=== PATIENT | female | born 1970 | race Caucasian/White ===

== ENCOUNTER 2018-04-09 00:13 | Emergency (ER) | payer BC ==
--- NOTE | 2018-04-09 00:26 | EDPHY ---
General Time Seen by Provider: 04/09/18 00:26 Narrative: CLINICAL IMPRESSION: Fever, Sore throat ASSESSMENT/PLAN: Patient is a 48-year-old female with no significant medical history who presents to the emergency department with complaints of a sore throat, runny nose, congestion and fever. Patient is afebrile, she is tired appearing however not toxic-appearing. She was noted to be mildly tachycardic on arrival with a heart rate of 105. On physical exam there is bilateral tonsillar enlargement, erythema and exudate. There was no stridor, drooling, hypoxia, respiratory distress or trismus. Her phonation was normal without hot potato voice. Rapid strep negative, culture is still pending. Influenza negative. Although the rapid strep was negative, her physical examination is most consistent with acute pharyngitis and secondary to reported fever of 102 opted to treat with Bicillin. Patient was also given Decadron, Zofran and a L of normal saline. She will continue taking ibuprofen and/or Tylenol as needed for pain. There was no evidence of otitis media, otitis externa, airway obstruction, uvular deviation, retropharyngeal abscess, peritonsillar abscess, deep space infection , angioedema, Sheldon angina, epiglottitis, sinusitis, meningitis or pneumonia. The patient [place], they are returning home on Wednesday and she will call to schedule follow-up appointment with her primary care provider on their return. On repeat examination and prior to discharge the patient is well-appearing, she states she feels so much better and her heart rate normalized to 80. I do not suspect sepsis or serious bacterial illness. Strict return precautions discussed- she is to return should she develop worsening sore throat, drooling, change in voice, inability to pass secretions or any other concerning symptom. Patient verbalizes understanding and is in agreement with this plan. DIFFERENTIAL DX: Adult fever including but not limited to viral syndromes including influenza, urinary tract infection, pneumonia and sepsis. ED COURSE: 0050: Case discussed with Dr. Hodge CHIEF COMPLAINT: Fever, sore throat, earache HPI: Patient is a 48-year-old female visiting on vacation with no significant medical history who presents to the emergency department with complaints of fever, sore throat and left earache. Patient reports she experienced what she feels was laryngitis about a week and half ago where she lost her voice and had no other symptoms. She did have several days thereafter was some runny nose and congestion, has never had any cough. 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 They traveled to [place] on Wednesday where she started to develop severe sore throat and left earache, she also felt at that time that she had a fever. She has been experiencing low- grade nausea and decreased appetite however has not had any vomiting. She denies any chest pain, shortness of breath or abdominal pain. She has had no rash. She denies any urinary symptoms to include dysuria, hematuria or increased frequency in her bowel movements have been normal. PMH: Denies Family History: Noncontributory Social History: Denies smoking or illicit drug use REVIEW OF SYSTEMS: All other systems negative Constitutional: Fever, decreased appetite. Eyes: No discharge, vision change ENT: Sore throat, left ear pain, runny nose, congestion. Cardiovascular: No chest pain, no palpitations. Respiratory: No cough, no shortness of breath. Gastrointestinal: Nausea No abdominal pain, no vomiting, diarrhea. Genitourinary: No hematuria, dysuria, flank pain, pelvic pain. Musculoskeletal: No back pain, joint swelling, joint pain, myalgias. Skin: No rashes, color change. Neurological: No headache, dizziness, weakness. PHYSICAL EXAM: General Appearance: Patient is well-developed, she is tired appearing however not toxic-appearing. HENT: Normocephalic, atraumatic. Bilateral external ears are normal. Bilateral tympanic membranes are normal with pearly polk reflex. There is no mastoid tenderness. Nares are clear, mucosa is pink. There is bilateral tonsillar enlargement, erythema and exudate. Uvula is midline. Her phonation is normal and there is no stridor. No other oral lesions identified. The dentition is normal. Eyes: PERRLA, no acute vision change, nystagmus, swelling, discharge, pain or photosensitivity. Conjunctiva pink, no pallor or injection. Neck: Patient with mild, tender anterior cervical lymphadenopathy. Supple, no midline pain, FROM, no meningismus. Respiratory: There are no retractions, lungs are clear to auscultation. Cardiac: Mildly tachycardic on arrival, no murmurs or gallops. Gastrointestinal: Abdomen is soft, nontender, bowel sounds normal, no masses/ hernia, no rigidity, guarding or focal peritoneal findings. Neurological: Alert and oriented x 3, CN 2-12 grossly intact, normal gait no ataxia, DTR's intact, normal sensation and strength Skin: Warm, dry, no rashes, no nodules on palpation. Musculoskeletal: Extremities are symmetrical, full range of motion, no tenderness, deformity, swelling, or erythema. Psychiatric: Patient is oriented X 3, there is no agitation. MEDICAL DECISION MAKING: Patient was seen independently. Secondary supervising physician at time of evaluation was Dr. Hodge, he also evaluated this patient. Diagnosis: Pharyngitis. New, requires workup Summary: See Assessment and Plan for summary of ED visit Clinical lab tests: ordered / reviewed. Independent visualization of images, tracing, or specimens: Not applicable. Decision to obtain medical records or history from someone other than the patient: Yes, Review / Summarize previous medical records: None available Discussed patient with another provider: Yes, Dr. Hodge Patient Progress: Stable, discharged. - History Smoking Status: Never smoked - Objective Vital Signs: Initial Vital Signs Temperature (C) 37.5 C 04/09/18 00:17 Heart Rate 105 H 04/09/18 00:17 Respiratory Rate 18 04/09/18 00:17 Blood Pressure 126/69 H 04/09/18 00:17 O2 Sat (%) 95 04/09/18 00:17 O2 Delivery Mode Room Air Allergies/Adverse Reactions: No Known Allergies Allergy (Unverified 04/09/18 00:16) Home Medications: Medication Instructions Recorded CLONAZEPAM 04/09/18 Lomotil Tab (*) 04/09/18 Seroquel 04/09/18 Laboratory Results: 04/09/18 Unknown Group A Strep DNA NEGATIVE (NEGATIVE) Medications Given: Discontinued Medications Dexamethasone (Decadron Injection) 10 mg IVP EDNOW ONE Stop: 04/09/18 00:50 Last Admin: 04/09/18 01:09 Dose: 10 mg Hydromorphone HCl (Dilaudid) 0.5 mg IVP EDNOW ONE Stop: 04/09/18 00:50 Last Admin: 04/09/18 01:09 Dose: 0.5 mg Sodium Chloride (Ns) 1,000 mls @ 0 mls/hr IV ONCE ONE PRN Reason: Wide Open Stop: 04/09/18 00:50 Last Admin: 04/09/18 00:56 Dose: 1,000 mls Ondansetron HCl (Zofran) 4 mg IVP Q4 PRN PRN Reason: Nausea/Vomiting, Can't Take PO Stop: 10/06/18 00:48 Last Admin: 04/09/18 01:09 Dose: 4 mg Penicillin G Benzathine (Bicillin L-A) 1,200,000 unit IM EDNOW ONE PRN Reason: Protocol Stop: 04/09/18 02:15 Last Admin: 04/09/18 02:35 Dose: 1,200,000 unit Departure - Departure Disposition: Home, Routine, Self-Care Clinical Impression: Pharyngitis Qualifiers: Pharyngitis/tonsillitis etiology: unspecified etiology Qualified Code(s): J02.9 - Acute pharyngitis, unspecified Condition: Good Instructions: Pharyngitis (ED) Additional Instructions: DISCHARGE INSTRUCTIONS FROM YOUR DOCTOR Thank you for visiting our emergency department today. Please keep in mind that discharge from the emergency department does not mean that there is nothing wrong - it simply means that we have not identified an emergency condition that requires further evaluation or treatment in the hospital. You should always plan to follow up with primary care for re-evaluation of your condition in the next 2-3 days. Rest, push non-diuretic, non-caffeinated fluids, consume a healthy diet, all to help support your immune system fight infection. Consider running a coolmist humidifier in the bedroom. Consider warm salt water gargles for sore throat. For pain control: You may take Tylenol, I recommend 500-1000 mg every 6-8 hours as needed. Take with food and a full glass of water. Stop taking if this is upsetting her stomach. Do not exceed 4000 mg in a 24 hr period. You may also take ibuprofen, recommend 400 mg every 6 hr. Take with food and a full glass of water. Stop taking if this upsets her stomach. Do not exceed 2400 mg in a 24 hr period. As discussed, in the setting of a viral illness, you may develop a secondary bacterial infection, requiring an antibiotic. Watch for new or changing symptoms ie: new ear pain or drainage, increasing cough, shortness of breath, high fever, or any other concerning symptoms. Your given a single dose of intramuscular Bicillin for presumed strep pharyngitis. You do not need additional antibiotics. Schedule a follow-up appointment with your primary care physician in the next 2- 3 days for re-evaluation, sooner for any new concerns. Return for high fever, shaking chills, severe headache, facial redness or swelling, drainage from your ears, difficulty breathing or swallowing, throat tightness, drooling, change in voice, inability to open your mouth normally, severe neck pain, neck stiffness, shortness of breath, wheezing, noisy breathing , coughing up blood, chest pain, vomiting, diarrhea, bloody stools, decreased urine output or other concerns for dehydration, bloody urine, rash, dizziness, weakness, fainting, or for any other new, worsening or worrisome symptoms. People present with illnesses and injuries in different ways, and it is always possible that we have missed something. You may always return for re-evaluation if symptoms worsen or if they are not improving or if you develop new/different symptoms. Again, thank you for choosing our emergency department. We hope that you feel better. Referrals: NONE *PRIMARY CARE P,. [Primary Care Provider] - As per Instructions (Follow up with your primary care provider when you return back home)
[2018-04-09] MEDS ORDERED: DEXAMETHASONE 10 MG/ML VIAL IVP ONE (00:49)
[2018-04-09] MEDS ORDERED: NS 1,000 ML IV ONE (00:49)
[2018-04-09] MEDS ORDERED: HYDROmorphONE/DILAUDID 2 MG/ML INJ IVP ONE (00:49)
[2018-04-09] MEDS ORDERED: ONDANSETRON 4 MG/2 ML VIAL IVP PRN (00:49)
[2018-04-09] MEDS ORDERED: BICILLIN L-A 1200000 UNIT/2 ML SYRINGE IM ONE (02:14)
[2018-04-09 06:26] VITALS: BP 134/76
== END 2018-04-09 02:41 | disposition home or self-care (01) ==
DX: J02.9 Acute pharyngitis, unspecified (principal); R50.9 Fever, unspecified; E86.9 Volume depletion, unspecified
CPT/HCPCS: 96374; J0561; J1100; J1170; J2405